=== PATIENT | male | born 1970 ===

== ENCOUNTER → 2024-09-12 08:16 | Outpatient (REF) | payer BC, SELFPAY | LOC: RCS 08:16 | PROVIDERS: ATTENDING PHYSICIAN Internal Medicine Cardiovascular Disease; FAMILY PHYSICIAN Nurse Practitioner Adult Health | DX: R06.09 Other forms of dyspnea (principal); I10 Essential (primary) hypertension; R94.31 Abnormal electrocardiogram [ECG] [EKG] | CPT/HCPCS: 93306 ==

== ENCOUNTER → 2024-10-08 06:50 | Outpatient (REF) | payer BC, SELFPAY | LOC: RCS 06:50 | PROVIDERS: ATTENDING PHYSICIAN Internal Medicine Cardiovascular Disease; FAMILY PHYSICIAN Nurse Practitioner Adult Health | DX: R06.09 Other forms of dyspnea (principal); I10 Essential (primary) hypertension; R94.31 Abnormal electrocardiogram [ECG] [EKG] | CPT/HCPCS: 78452; 93017; A9500 ==